=== PATIENT | female | born 1955 | race Caucasian/White ===

== ENCOUNTER 2017-04-23 09:40 | Day surgery (SDC) | payer OTHER ==
[2017-04-23] MEDS ORDERED: MIDAZOLAM 1 MG/ML 2 ML INJ ×2 (11:58)
[2017-04-23] MEDS ORDERED: FENTAnyl 50 MCG/ML VIAL (11:58)
== END 2017-04-23 13:27 | disposition home or self-care (01) ==
LOC: GIL 09:40
DX: Z12.11 Encounter for screening for malignant neoplasm of colon (principal); K64.4 Residual hemorrhoidal skin tags; K63.89 Other specified diseases of intestine
CPT/HCPCS: 45378